=== PATIENT | male | born 1970 | race African-American/Black ===

== ENCOUNTER 2016-11-26 08:48 | Emergency (ER) | payer OTHER ==
[2016-11-26] MEDS ORDERED: Aspirin Low Dose CHEW TAB* 81 MG PO ONE (08:53)
[2016-11-26 09:21] LABS: Hematocrit 42 % (42-52); Hemoglobin 13.5 g/dl (14.0-18.0); Mean Corpuscular HGB Conc 33 g/dl (31-36); Mean Corpuscular Hemoglobin 27 pg (27-31); Mean Corpuscular Volume 82 fL (80-94); Mean Platelet Volume 12 um3 (7.4-10.4); Red Blood Count 5.07 10^6/ul (4.0-5.4); Red Cell Distribution Width 13 % (10.5-15); White Blood Count 6.3 10^3/ul (3.5-10.8)
[2016-11-26 09:42] LABS: Albumin 4.4 g/dL (3.2-5.2); BUN/Creatinine Ratio 20.5 (8-20); EGFR African American 149.4 (>60); EGFR Non-African American 116.2 (>60); Globulin 2.5 g/dL (2-4); Magnesium 2.1 mg/dL (1.9-2.7); Total Bilirubin 0.4 mg/dL (0.2-1.0); Total Protein 6.9 g/dL (6.4-8.9)
[2016-11-26 10:00] LABS: TSH (Thyroid Stimulating Horm) 0.82 mcIU/mL (0.34-5.60)
--- NOTE | 2016-11-26 10:03 | RAD ---
HISTORY: Chest pain COMPARISONS: None VIEWS:1: Single frontal portable view of the chest at 9:25 AM FINDINGS: LINES AND TUBES: None. CARDIOMEDIASTINAL SILHOUETTE: The cardiomediastinal silhouette is normal for portable technique. PLEURA: The costophrenic angles are sharp. No pleural abnormalities are noted. LUNG PARENCHYMA: The lungs are clear. ABDOMEN: The upper abdomen is clear. There is no subphrenic gas. BONES AND SOFT TISSUES: No bone or soft tissue abnormalities are noted. IMPRESSION: NO ACTIVE CARDIOPULMONARY DISEASE.
[2016-11-26 13:24] VITALS: BP 115/70
--- NOTE | 2016-11-26 18:18 | ED ---
Princess Orellana Matthew, scribed for Federico Diamond MD on 11/26/16 at 0912 . HPI Chest Pain - HPI Summary HPI Summary: A 46 y/o male presents to the ED from [place] for EKG changes. The patient was having ST elevation in leads II,III, and AvF, which prompted them to send the patient to [facility]. The patient is not having chest pain currently. He last had chest pain on 11/21/16. The patient denies nausea, vomiting, chest pain, SOB, and diaphoresis. PMHx of COPD, neuropathy, seizure disorder (few months ago). The patient last smoked yesterday. Last drank ago, drugs a month ago. FHx of diabetes. No FHx of CAD - History of Current Complaint Chief Complaint: EDChestPainROMI Hx Obtained From: Patient Onset/Duration: Atraumatic, Resolved Current Severity: None Pain Intensity: 0 Pain Scale Used: 0-10 Numeric Aggravating Factor(s): Nothing Alleviating Factor(s): Nothing Associated Signs and Symptoms: Negative: Chest Pain, Shortness of Breath, Diaphoresis, Nausea, Vomiting - Allergy/Home Medications Allergies/Adverse Reactions: Allergies Allergy/AdvReac Type Severity Reaction Status Date / Time No Known Allergies Allergy Verified 11/26/16 08:50 Home Medications: Home Medications Albuterol HFA INHALER* [Ventolin HFA Inhaler*] 2 puff INH QID PRN 11/26/16 [ History Confirmed 11/26/16] Beclomethasone 40 MCG MDI(NF) [Qvar 40 MCG MDI(NF)] 2 puff INH BID 11/26/16 [ History Confirmed 11/26/16] Zafirlukast (NF) [Accolate (NF)] 20 mg PO BID 11/26/16 [History Confirmed ] PMH/Surg Hx/FS Hx/Imm Hx Previously Healthy: No Respiratory History: Reports: Hx Chronic Obstructive Pulmonary Disease (COPD) Neurological History: Reports: Hx Seizures - Family History Known Family History: Positive: Diabetes - Social History Alcohol Use: Daily Alcohol Amount: Last used a month ago Hx Substance Use: Yes Substance Use Comment - Amount & Last Used: Last used a month ago Hx Tobacco Use: Yes Review of Systems Constitutional: Negative Negative: Skin Diaphoresis Eyes: Negative ENT: Negative Cardiovascular: Negative Negative: Chest Pain Respiratory: Negative Negative: Shortness Of Breath Gastrointestinal: Negative Negative: Vomiting, Nausea Genitourinary: Negative Musculoskeletal: Negative Skin: Negative Neurological: Negative Psychological: Normal All Other Systems Reviewed And Are Negative: Yes Physical Exam - Summary Physical Exam Summary: VITAL SIGNS: Reviewed. GENERAL: Patient is a well developed and nourished male who is lying comfortable in the stretcher. Patient is not in any acute respiratory distress. HEAD AND FACE: No signs of trauma. No ecchymosis, hematomas or skull depressions. No sinus tenderness. EYES: PERRLA, EOMI x 2, No injected conjunctiva, no nystagmus. EARS: Hearing grossly intact. Ear canals and tympanic membranes are within normal limits. MOUTH: Oropharynx within normal limits. NECK: Supple, trachea is midline, no adenopathy, no JVD, no carotid bruit, no c- spine tenderness, neck with full ROM. CHEST: Symmetric, no tenderness at palpation LUNGS: Clear to auscultation bilaterally. No wheezing or crackles. CVS: Regular rate and rhythm, S1 and S2 present, no murmurs or gallops appreciated. ABDOMEN: Soft, non-tender. No signs of distention. No rebound no guarding, and no masses palpated. Bowel sounds are normal. EXTREMITIES: FROM in all major joints, no edema, no cyanosis or clubbing. NEURO: Alert and oriented x 3. No acute neurological deficits. Speech is normal and follows commands. SKIN: Dry and warm Triage Information Reviewed: Yes Vital Signs On Initial Exam: Initial Vitals Temp Pulse Resp BP Pulse Ox 98.7 F 66 18 120/75 100 11/26/16 08:50 11/26/16 08:50 11/26/16 08:50 11/26/16 08:50 11/26/16 08:50 Vital Signs Reviewed: Yes Diagnostics - Vital Signs Vital Signs Temp Pulse Resp BP Pulse Ox 11/26/16 08:50 98.7 F 66 18 120/75 100 - Laboratory Lab Results: Lab Results 11/26/16 Range/Units 09:10 WBC 6.3 (3.5-10.8) 10^3/ul RBC 5.07 (4.0-5.4) 10^6/ul Hgb 13.5 L (14.0-18.0) g/dl Hct 42 (42-52) % MCV 82 (80-94) fL MCH 27 (27-31) pg MCHC 33 (31-36) g/dl RDW 13 (10.5-15) % Plt Count 140 L (150-450) 10^3/ul MPV 12 H (7.4-10.4) um3 Neut % (Auto) 71.9 (38-83) % Lymph % (Auto) 20.3 L (25-47) % [place] % (Auto) 6.0 (1-9) % Eos % (Auto) 1.4 (0-6) % Baso % (Auto) 0.4 (0-2) % Absolute Neuts (auto) 4.5 (1.5-7.7) 10^3/ul Absolute Lymphs (auto) 1.3 (1.0-4.8) 10^3/ul Absolute Monos (auto) 0.4 (0-0.8) 10^3/ul Absolute Eos (auto) 0.1 (0-0.6) 10^3/ul Absolute Basos (auto) 0 (0-0.2) 10^3/ul Absolute Nucleated RBC 0.01 10^3/ul Nucleated RBC % 0.1 Result Diagrams: 11/26/16 09:10 11/26/16 09:10 Lab Statement: Any lab studies that have been ordered have been reviewed, and results considered in the medical decision making process. - Radiology CXR Xray Interpretation: No Acute Changes - IMPRESSION: NO ACTIVE CARDIOPULMONARY DISEASE. Radiology Interpretation Completed By: Radiologist - EKG 09:05 Cardiac Rate: NL - 67 bpm EKG Rhythm: Sinus Rhythm EKG Interpretation: ST elevation in II,III, AvF and less than 1mm Chest Pain Course/Dx - Course Assessment/Plan: A 46 y/o male presents to the ED from [place] for EKG changes. The patient was having ST elevation in leads II,III, and AvF, which prompted them to send the patient to [facility]. The patient is not having chest pain currently. He last had chest pain on 11/21/16. The patient denies nausea, vomiting , chest pain, SOB, and diaphoresis. PMHx of COPD, neuropathy, seizure disorder ( few months ago). The patient last smoked yesterday. Last drank ago, drugs a month ago. FHx of diabetes. No FHx of CAD. Blood work WNL except for Hgb of 13.5. EKG shows ST elevation in II,III, and AvF which is less than 1mm. However the patient is asymptotic denies chest pain, SOB, diaphoresis, or dizziness. Initially I discussed the case with Dr. Jimenez from cardiology and he reviewed the EKG. He thinks that the patient has more J-point than ST elevation since the EKG does not have reciprocal changes and the patient it asymptomatic. So he requested to do troponin. Both troponins are negative four hours apart and the patient continues to be asymptomatic. Therefore Dr. Jimenez recommended if the troponin are negative to be D/C and follow-up as an outpatient. The patient is asymptomatic A&Ox3 and hemodynamically stable. I discussed all the findings and test results with the patient. Patient was instructed to return to the emergency room immediately if any of the symptoms return or worsens. Plan of care was discussed with the patient and understands and agrees. All questions were answered at patient satisfaction. There were no further complaints or concerns. Lung exam before discharge: CTA B/L. Good air exchange. No wheezing or crackles heard. CVS: S1 and S2 present. No murmurs appreciated. Patient is alert and oriented x 3. Patient is hemodynamically stable. Patient will be discharged home with follow up PCP in the next 2-3 days - Chest Pain Differential Diagnosis/HQI/PQRI: Acute AR, ACS, Angina, CHF, Chest Wall, GI Disease, Lower Respiratory Infection - Diagnoses Provider Diagnoses: EKG abnormality - Provider Notifications Discussed Care Of Patient With: Dr. Jimenez (Rn Or Lvn) at 09:15 -- Notified of rojastent's history. He says there are 1mm ST elevations; however check the troponin and if its negative he can follow-up as an outpatient. Discharge - Discharge Plan Condition: Stable Disposition: HOME Patient Education Materials: Electrocardiogram (GEN) Referrals: [facility] [place] [facility] [Outside] Anoop Jimenez DO [Medical Doctor] - 2 Days Additional Instructions: Please follow-up with Dr. Jimenez in 2 days. The documentation as recorded by the Princess nazario Matthew accurately reflects the service I personally performed and the decisions made by me, Federico Diamond MD.
== END 2016-11-26 13:23 | disposition home or self-care (01) ==
LOC: ED 08:48
DX: R94.31 Abnormal electrocardiogram [ECG] [EKG] (principal); J44.9 Chronic obstructive pulmonary disease, unspecified; F17.200 Nicotine dependence, unspecified, uncomplicated
CPT/HCPCS: 36415; 71010; 80053; 82550; 82553; 83605; 83735; 83880; 84443; 84484; 85025; 93005; 99283